=== PATIENT | male | born 1950 | race African-American/Black ===

== ENCOUNTER 2021-04-22 06:36 | Emergency (ER) | payer MEDICARE, OTHER ==
[~2021-04-22] VITALS: Ht 182.9 cm; Wt 69.0 kg
[2021-04-22 07:28] LABS: BASOPHILS % 0.3 % (0.0-2.0); EOSINOPHILS % 0.6 % (0.0-5.0); HEMATOCRIT. 45.1 % (42.0-52.0); HEMOGLOBIN. 15.7 g/dL (14.0-18.0); LYMPHOCYTES % 21.3 % (20.0-50.0); MEAN CORPUSCULAR HEMOGLOBIN 28.5 pg (28.0-32.0); MEAN PLATELET VOLUME 8.6 fl (7.4-10.4); NEUTROPHILS % 69.8 % (40.0-76.0); PLATELET 189 x1000/uL (130-400); RED BLOOD CELL COUNT 5.49 mill/uL (4.7-6.1); RED CELL DISTRIBUTION WIDTH 14.9 % (11.6-14.6)
[2021-04-22 07:37] LABS: CHLORIDE 112 mEq/L (98-107)
[2021-04-22 07:41] LABS: ETHANOL BLOOD < 10 mg/dL
[2021-04-22 07:46] LABS: CREATINE KINASE 75 IU/L (39-308)
[2021-04-22 08:45] LABS: CLARITY URINE CLEAR (CLEAR); COLOR URINE YELLOW (YELLOW); KETONES URINE 1+ (NEGATIVE); LEUKOCYTE ESTERASE URINE NEGATIVE (NEGATIVE); NITRITE URINE NEGATIVE (NEGATIVE); OCCULT BLOOD URINE NEGATIVE (NEGATIVE); PH URINE 5.5 (4.5-8.0); PROTEIN URINE TRACE (NEGATIVE); SPECIFIC GRAVITY URINE 1.022 (1.005-1.030); UROBILINOGEN URINE 0.2 E.U./dL (0.2-1.0)
[2021-04-22 09:08] LABS: *AMPHETAMINES SCREEN URINE NEGATIVE (NEGATIVE); *BARBITURATES SCREEN URINE NEGATIVE (NEGATIVE); *BENZODIAZEPINES SCREEN URINE NEGATIVE (NEGATIVE); *COCAINE SCREEN URINE NEGATIVE (NEGATIVE); METHADONE URINE SCREEN NEGATIVE (NEGATIVE); OPIATES URINE SCREEN PRESUMTIVE POSITIVE (NEGATIVE)
[2021-04-22 09:09] LABS: CANNABINOID URINE SCREEN PRESUMTIVE POSITIVE (NEGATIVE); PHENCYCLIDINE URINE SCREEN NEGATIVE (NEGATIVE)
[2021-04-22 12:15] VITALS: BP 147/87
== END 2021-04-22 12:25 | disposition home or self-care (01) ==
LOC: ER 06:36
DX: G40.909 Epilepsy, unspecified, not intractable, without status epilepticus (principal); I10 Essential (primary) hypertension; H40.9 Unspecified glaucoma; Z87.81 Personal history of (healed) traumatic fracture; Z98.890 Other specified postprocedural states
CPT/HCPCS: 36415; 80053; 80305; 80320; 81003; 82140; 82550; 83605; 84443; 85025; 93005; 99285; G0480

== ENCOUNTER 2021-08-05 10:43 | Inpatient (IN) | payer MEDICARE, MEDICAID ==
[~2021-08-05] VITALS: Ht 167.6 cm; Wt 61.7 kg
[2021-08-05 11:37] LABS: HEMATOCRIT. 45.7 % (42.0-52.0); HEMOGLOBIN. 15.6 g/dL (14.0-18.0); MEAN CORPUSCULAR HEMOGLOBIN 28.4 pg (28.0-32.0); MEAN CORPUSCULAR VOLUME 83.3 fL (80.0-94.0); MEAN PLATELET VOLUME 8.5 fl (7.4-10.4); PLATELET 218 x1000/uL (130-400); RED BLOOD CELL COUNT 5.48 mill/uL (4.7-6.1); RED CELL DISTRIBUTION WIDTH 15.6 % (11.6-14.6)
[2021-08-05 11:43] LABS: CHLORIDE 110 mEq/L (98-107)
[2021-08-05 11:48] LABS: ETHANOL BLOOD < 10 mg/dL
[2021-08-05 12:26] LABS: PLATELET ESTIMATE NORMAL
[2021-08-05 14:58] LABS: CLARITY URINE CLOUDY (CLEAR); COLOR URINE YELLOW (YELLOW); KETONES URINE 1+ (NEGATIVE); LEUKOCYTE ESTERASE URINE 1+ (NEGATIVE); NITRITE URINE NEGATIVE (NEGATIVE); OCCULT BLOOD URINE 2+ (NEGATIVE); PH URINE 5.5 (4.5-8.0); PROTEIN URINE TRACE (NEGATIVE); SPECIFIC GRAVITY URINE 1.019 (1.005-1.030); UROBILINOGEN URINE 0.2 E.U./dL (0.2-1.0)
[2021-08-05 15:18] LABS: *AMPHETAMINES SCREEN URINE NEGATIVE (NEGATIVE); *BARBITURATES SCREEN URINE NEGATIVE (NEGATIVE); *BENZODIAZEPINES SCREEN URINE PRESUMTIVE POSITIVE (NEGATIVE); *COCAINE SCREEN URINE NEGATIVE (NEGATIVE)
[2021-08-05 15:19] LABS: CANNABINOID URINE SCREEN PRESUMTIVE POSITIVE (NEGATIVE); METHADONE URINE SCREEN NEGATIVE (NEGATIVE); OPIATES URINE SCREEN NEGATIVE (NEGATIVE); PHENCYCLIDINE URINE SCREEN NEGATIVE (NEGATIVE)
[2021-08-05] MEDS ORDERED: PIPERACILLIN/TAZ 3.375G PREMIX 50 ML IV ONE (16:15)
[2021-08-05] MEDS ORDERED: VANCOMYCIN 1 G PREMIX 200 ML IV ONE (16:15)
[2021-08-05] MEDS ORDERED: SODIUM CHLORIDE 0.9% 1000ML BAG (SEPSIS BOLUS) IV ONE ×2 (16:15)
[2021-08-05] MEDS ORDERED: LORAZEPAM 2MG/ML CPJ IV ONE (16:30)
[2021-08-05 20:00] VITALS: BP 145/94
[2021-08-05] MEDS ORDERED: ONDANSETRON HCL 4MG/2ML INJ IV PRN (21:48)
[2021-08-05 22:00] VITALS: BP 145/94
[2021-08-05] MEDS: LORAZEPAM 2MG/ML CPJ IV PRN (22:12)
[2021-08-05] MEDS: DEXT 5%/0.45% NACL KCL 20MEQ/L 1,000 ML IV SCH (23:35)
[2021-08-06] VITALS (7 sets, daily range): BP systolic 121–151; BP diastolic 82–99
[2021-08-06 06:27] LABS: BASOPHILS % 0.1 % (0.0-2.0); HEMATOCRIT. 40.2 % (42.0-52.0); HEMOGLOBIN. 13.9 g/dL (14.0-18.0); LYMPHOCYTES % 10.2 % (20.0-50.0); MEAN CORPUSCULAR HEMOGLOBIN 28.6 pg (28.0-32.0); MEAN CORPUSCULAR VOLUME 82.7 fL (80.0-94.0); MEAN PLATELET VOLUME 8.6 fl (7.4-10.4); MONOCYTES % 9.8 % (2.0-8.0); NEUTROPHILS % 79.9 % (40.0-76.0); PLATELET 190 x1000/uL (130-400); RED BLOOD CELL COUNT 4.85 mill/uL (4.7-6.1); RED CELL DISTRIBUTION WIDTH 15.6 % (11.6-14.6)
[2021-08-06 06:45] LABS: CHLORIDE 111 mEq/L (98-107)
[2021-08-06] MEDS: DEXT 5%/0.45% NACL KCL 20MEQ/L 1,000 ML IV SCH ×3 (07:00→22:45)
[2021-08-06] MEDS ORDERED: POTASSIUM CHLORIDE INJ 40 MEQ in DEXT 5% WATER 250 ML IV NR (09:00)
[2021-08-06] MEDS: LORAZEPAM 2MG/ML CPJ IV PRN ×2 (09:41→22:45)
[2021-08-06] MEDS: PANTOPRAZOLE SODIUM 40 MG/VIAL IV SCH (09:41)
[2021-08-06] MEDS ORDERED: CEFTRIAXONE 1 G PREMIX 50 ML IV SCH (13:00)
[2021-08-06] MEDS ORDERED: POTASSIUM CHLORIDE 20MEQ TABLET SR PO SCH (13:00)
[2021-08-06] MEDS: CEFTRIAXONE 1,000 MG in DEXTROSE 5% WATER 50 ML IV SCH (14:55)
[2021-08-07] VITALS: BP 136/90
[2021-08-07 04:00] VITALS: BP 145/96
[2021-08-07 08:00] VITALS: BP 140/89
[2021-08-07] MEDS: LORAZEPAM 2MG/ML CPJ IV PRN ×3 (09:13→22:52)
[2021-08-07] MEDS: DEXT 5%/0.45% NACL KCL 20MEQ/L 1,000 ML IV SCH ×3 (09:13→22:52)
[2021-08-07] MEDS: PANTOPRAZOLE SODIUM 40 MG/VIAL IV SCH (09:13)
[2021-08-07 12:00] VITALS: BP 142/90
[2021-08-07] MEDS: CEFTRIAXONE 1,000 MG in DEXTROSE 5% WATER 50 ML IV SCH (13:19)
[2021-08-07 16:00] VITALS: BP 146/100
[2021-08-07 16:10] LABS: BASOPHILS % 0.2 % (0.0-2.0); HEMOGLOBIN. 12.9 g/dL (14.0-18.0); MEAN CORPUSCULAR HEMOGLOBIN 28.7 pg (28.0-32.0); MEAN CORPUSCULAR VOLUME 82.3 fL (80.0-94.0); MEAN PLATELET VOLUME 8.8 fl (7.4-10.4); MONOCYTES % 11.1 % (2.0-8.0); NEUTROPHILS % 71.7 % (40.0-76.0); PLATELET 179 x1000/uL (130-400)
[2021-08-07 16:13] LABS: CHLORIDE 113 mEq/L (98-107)
[2021-08-07] MEDS ORDERED: LEVO500T89 MT (17:37)
[2021-08-07] MEDS ORDERED: POTASSIUM CHLORIDE 20MEQ TABLET SR PO NR (18:00)
[2021-08-07 20:00] VITALS: BP 155/100
[2021-08-07] MEDS: FAMOTIDINE 20MG/2ML VIAL IV SCH (20:52)
[2021-08-08] VITALS: BP 158/95
[2021-08-08 04:00] VITALS: BP 147/97
[2021-08-08 08:00] VITALS: BP 159/101
[2021-08-08] MEDS: DEXT 5%/0.45% NACL KCL 20MEQ/L 1,000 ML IV SCH (08:31)
[2021-08-08] MEDS: FAMOTIDINE 20MG/2ML VIAL IV SCH (08:32)
[2021-08-08 08:46] VITALS: BP 153/93
== END 2021-08-08 11:05 | disposition home health service (06) | DRG 52 ==
LOC: ER 10:43 → EDBEDREQTM 16:21 → EDBEDREQ 16:21 → ENRESERV 18:45 → 8WST 19:26
PROVIDERS: ADMIT Internal Medicine; ATTEND Internal Medicine
DX: G93.41 Metabolic encephalopathy (principal); E87.2 Acidosis; E87.8 Other disorders of electrolyte and fluid balance, not elsewhere classified; I10 Essential (primary) hypertension; J45.909 Unspecified asthma, uncomplicated; N39.0 Urinary tract infection, site not specified
CPT/HCPCS: 36415; 71045; 80048; 80053; 80305; 80320; 81003; 82140; 82962; 83605; 84145; 84484; 85025; 93005; 97162; 99285; C1893; C9113; J0696; J2060; J2543; J3370; J3480; J3490; J7030; J7060; A4315; G0480

== ENCOUNTER 2021-10-15 13:26 | Inpatient (IN) | payer MEDICARE, MEDICAID ==
[~2021-10-15] VITALS: Ht 177.8 cm; Wt 59.9 kg
[~2021-10-15 13:26] MED LIST: LEVO500T89 MT
[2021-10-15] MEDS ORDERED: SODIUM CHLORIDE 0.9% 1000ML BAG (SEPSIS BOLUS) IV ONE (15:00)
[2021-10-15 15:29] LABS: HEMATOCRIT. 46.9 % (42.0-52.0); HEMOGLOBIN. 15.2 g/dL (14.0-18.0); MEAN CORPUSCULAR HEMOGLOBIN 27.2 pg (28.0-32.0); MEAN CORPUSCULAR VOLUME 84.1 fL (80.0-94.0); MEAN PLATELET VOLUME 8.4 fl (7.4-10.4); PLATELET 223 x1000/uL (130-400); RED BLOOD CELL COUNT 5.58 mill/uL (4.7-6.1); RED CELL DISTRIBUTION WIDTH 14.9 % (11.6-14.6)
[2021-10-15 15:34] LABS: CHLORIDE 108 mEq/L (98-107)
[2021-10-15 16:24] LABS: CLARITY URINE TURBID (CLEAR); COLOR URINE YELLOW (YELLOW); KETONES URINE 1+ (NEGATIVE); LEUKOCYTE ESTERASE URINE NEGATIVE (NEGATIVE); NITRITE URINE NEGATIVE (NEGATIVE); OCCULT BLOOD URINE 1+ (NEGATIVE); PH URINE 5.5 (4.5-8.0); PROTEIN URINE 1+ (NEGATIVE); SPECIFIC GRAVITY URINE 1.018 (1.005-1.030); UROBILINOGEN URINE 0.2 E.U./dL (0.2-1.0)
[2021-10-15 16:28] LABS: BG BASE EXCESS -2.4 mmol/L (-2.0-2.0); BG CARBOXYHEMOGLOBIN 1.1 % (0.5-1.5); BG DEOXYHEMOGLOBIN 2.9 % (0.0-5.0); BG FRACTION INSPIRED OXYGEN 21; BG HCO3 ACT 19.6 mmol/L (22.0-26.0); BG METHEMOGLOBIN 0.4 % (0.0-1.5); BG OXYGEN SATURATION 97.1 % (92.0-98.5); BG OXYHEMOGLOBIN 95.6 % (94.0-97.0); BG PCO2 27.1 mmHg (35.0-45.0); BG PH 7.477 (7.350-7.450); BG PO2 80.1 mmHg (75.0-100.0); BG SAMPLE SITE RIGHT BRACHIAL; BG TOTAL HEMOGLOBIN 14.2 g/dL (12.0-18.0); BG VENT MODE ROOM AIR
[2021-10-15] MEDS ORDERED: ASPIRIN 325MG EC TABLET PO ONE (17:00)
[2021-10-15] MEDS ORDERED: CEFEPIME 2,000 MG in DEXT 5% WATER 100 ML IV SCH (17:00)
[2021-10-15] MEDS ORDERED: VANCOMYCIN 750 MG PREMIX 150 ML IV SCH (17:15)
[2021-10-15] MEDS ORDERED: LEVETIRACETAM 500MG PREMIX 100 ML IV ONE ×3 (17:30)
[2021-10-15 17:31] LABS: PLATELET ESTIMATE NORMAL
[2021-10-15] MEDS ORDERED: ONDANSETRON HCL 4MG/2ML INJ IV PRN (17:45)
[2021-10-15] MEDS ORDERED: CLONIDINE 0.1MG TABLET PO PRN (17:45)
[2021-10-15] MEDS ORDERED: IPRATROPIUM/ALBUTEROL 0.5-3(2.5)MG/3ML NEB HHN PRN (17:45)
[2021-10-15] MEDS ORDERED: LORAZEPAM 2MG/ML CPJ IV PRN (17:45)
[2021-10-15] MEDS ORDERED: IOHEXOL-300 100 ML BOTTLE ONE (18:16)
[2021-10-15] MEDS: DIPHENHYDRAMINE 50MG/ML VIAL IV PRN (18:50)
[2021-10-15 20:45] VITALS: BP 123/89
[2021-10-15] MEDS ORDERED: DEXTROSE 50% WATER 50ML SYRINGE IV PRN (23:45)
[2021-10-16] VITALS: BP 102/67
[2021-10-16] MEDS ORDERED: GABA-532 PO (00:06)
[2021-10-16] MEDS ORDERED: DORZ10DR9 EACHEYE (00:06)
[2021-10-16] MEDS ORDERED: ASPI-1497 PO (00:06)
[2021-10-16] MEDS ORDERED: LATA2.5D14 EACHEYE (00:06)
[2021-10-16] MEDS ORDERED: HYDR25TA PO (00:06)
[2021-10-16] MEDS ORDERED: OMEP20CA14 PO (00:06)
[2021-10-16] MEDS ORDERED: LISI20TA31 PO (00:06)
[2021-10-16] MEDS ORDERED: QUET50TA23 PO (00:06)
[2021-10-16 00:15] LABS: CREATINE KINASE MB FRACTION 8.2 ng/mL (0.5-3.6)
[2021-10-16] MEDS: ACETAMINOPHEN 325MG TABLET PO PRN ×2 (01:04→21:06)
[2021-10-16] MEDS ORDERED: VANCOMYCIN 750 MG PREMIX 150 ML IV SCH (02:00)
[2021-10-16 04:00] VITALS: BP 114/95
[2021-10-16 06:29] LABS: BASOPHILS % 0.1 % (0.0-2.0); HEMATOCRIT. 42.7 % (42.0-52.0); HEMOGLOBIN. 14.5 g/dL (14.0-18.0); LYMPHOCYTES % 13.3 % (20.0-50.0); MEAN CORPUSCULAR HEMOGLOBIN 28.2 pg (28.0-32.0); MEAN CORPUSCULAR VOLUME 82.8 fL (80.0-94.0); MEAN PLATELET VOLUME 8.5 fl (7.4-10.4); MONOCYTES % 8.3 % (2.0-8.0); NEUTROPHILS % 78.3 % (40.0-76.0); PLATELET 207 x1000/uL (130-400); RED BLOOD CELL COUNT 5.16 mill/uL (4.7-6.1); RED CELL DISTRIBUTION WIDTH 14.8 % (11.6-14.6)
[2021-10-16] MEDS: INSULIN LISPRO 100 UNITS/ML SUBCUT SCH ×4 (06:57→21:00)
[2021-10-16 07:06] LABS: CHLORIDE 113 mEq/L (98-107)
[2021-10-16 07:18] LABS: CREATINE KINASE MB FRACTION 7.5 ng/mL (0.5-3.6)
[2021-10-16] MEDS: BLOOD SUGAR DIAGNOSTIC STRIP TEST SCH ×4 (07:20→21:00)
[2021-10-16 07:32] LABS: CREATINE KINASE 2513 IU/L (39-308)
[2021-10-16 08:00] VITALS: BP 118/86
[2021-10-16] MEDS: POTASSIUM CHLORIDE 20MEQ TABLET SR PO SCH (09:11)
[2021-10-16] MEDS ORDERED: KCL 20MEQ/100ML PREMIX 100 ML IV SCH (11:00)
[2021-10-16 12:11] VITALS: BP 138/88
[2021-10-16 13:05] LABS: T4 FREE 1.13 ng/dL (0.76-1.46)
[2021-10-16 13:06] LABS: CREATINE KINASE MB FRACTION 6.6 ng/mL (0.5-3.6)
[2021-10-16] MEDS: SODIUM CHLORIDE 0.9% 1,000 ML IV SCH (13:30)
[2021-10-16] MEDS: OMEPRAZOLE 20MG CAPSULE EXTENDED RELEASE PO SCH (13:31)
[2021-10-16] MEDS: GABAPENTIN 100MG CAPSULE PO SCH ×2 (13:31→21:07)
[2021-10-16] MEDS: ASPIRIN 81MG EC TABLET PO SCH (13:31)
[2021-10-16] MEDS: LEVETIRACETAM 500MG PREMIX 100 ML IV SCH ×2 (15:15→23:53)
[2021-10-16 16:25] VITALS: BP 126/88
[2021-10-16] MEDS: DORZOLAM/TIMOLOL 2.23/0.68% OPHTH DROPS 10ML EACHEYE SCH (17:02)
[2021-10-16 17:06] LABS: *AMPHETAMINES SCREEN URINE NEGATIVE (NEGATIVE); *BARBITURATES SCREEN URINE NEGATIVE (NEGATIVE); *BENZODIAZEPINES SCREEN URINE NEGATIVE (NEGATIVE); *COCAINE SCREEN URINE NEGATIVE (NEGATIVE); METHADONE URINE SCREEN NEGATIVE (NEGATIVE); OPIATES URINE SCREEN NEGATIVE (NEGATIVE)
[2021-10-16 17:07] LABS: CANNABINOID URINE SCREEN PRESUMTIVE POSITIVE (NEGATIVE); PHENCYCLIDINE URINE SCREEN NEGATIVE (NEGATIVE)
[2021-10-16 20:00] VITALS: BP 133/83
[2021-10-16] MEDS ORDERED: IOHEXOL-350 100 ML BOTTLE ONE (20:43)
[2021-10-16] MEDS: QUETIAPINE FUMARATE 50MG TABLET PO SCH (21:07)
[2021-10-16] MEDS: LATANOPROST 0.005% OPHTH DROPS 2.5ML EACHEYE SCH (21:07)
[2021-10-16] MEDS ORDERED: KETO5DRO37 RIGHTEYE (21:31)
[2021-10-16] MEDS: KETOROLAC TROMETHAMINE 0.5% OPHTH 3ML RIGHTEYE SCH (23:56)
[2021-10-17] VITALS: BP 131/91
[2021-10-17 04:00] VITALS: BP 140/90
[2021-10-17 06:11] LABS: CHLORIDE 115 mEq/L (98-107)
[2021-10-17 06:12] LABS: BASOPHILS % 0.5 % (0.0-2.0); EOSINOPHILS % 0.4 % (0.0-5.0); HEMATOCRIT. 37.8 % (42.0-52.0); LYMPHOCYTES % 18.8 % (20.0-50.0); MEAN CORPUSCULAR HEMOGLOBIN 28.6 pg (28.0-32.0); MEAN CORPUSCULAR VOLUME 82.9 fL (80.0-94.0); MEAN PLATELET VOLUME 8.6 fl (7.4-10.4); NEUTROPHILS % 69.3 % (40.0-76.0); PLATELET 183 x1000/uL (130-400); RED BLOOD CELL COUNT 4.56 mill/uL (4.7-6.1); RED CELL DISTRIBUTION WIDTH 14.9 % (11.6-14.6)
[2021-10-17] MEDS: GABAPENTIN 100MG CAPSULE PO SCH ×3 (06:14→21:28)
[2021-10-17 06:19] LABS: LDL CHOLESTEROL 54 mg/dL (5-100)
[2021-10-17 06:21] LABS: HDL CHOLESTEROL 75 mg/dL (40-59)
[2021-10-17] MEDS: INSULIN LISPRO 100 UNITS/ML SUBCUT SCH ×4 (07:50→21:00)
[2021-10-17] MEDS: BLOOD SUGAR DIAGNOSTIC STRIP TEST SCH ×4 (07:56→21:00)
[2021-10-17 08:00] VITALS: BP 147/91
[2021-10-17] MEDS: OMEPRAZOLE 20MG CAPSULE EXTENDED RELEASE PO SCH (09:08)
[2021-10-17] MEDS: LISINOPRIL 20MG TABLET PO SCH (09:08)
[2021-10-17] MEDS: ASPIRIN 81MG EC TABLET PO SCH (09:08)
[2021-10-17] MEDS: DORZOLAM/TIMOLOL 2.23/0.68% OPHTH DROPS 10ML EACHEYE SCH ×2 (09:09→16:49)
[2021-10-17] MEDS: KETOROLAC TROMETHAMINE 0.5% OPHTH 3ML RIGHTEYE SCH ×3 (09:09→16:50)
[2021-10-17] MEDS: POTASSIUM CHLORIDE 20MEQ TABLET SR PO SCH (09:09)
[2021-10-17] MEDS: SODIUM CHLORIDE 0.9% 1,000 ML IV SCH (09:10)
[2021-10-17] MEDS: LEVETIRACETAM 500MG PREMIX 100 ML IV SCH (09:10)
[2021-10-17] MEDS: POTASSIUM CHLORIDE 20MEQ/PACKET PO SCH ×2 (10:56→16:50)
[2021-10-17 12:00] VITALS: BP 129/88
[2021-10-17 16:00] VITALS: BP 134/90
[2021-10-17] MEDS ORDERED: POTASSIUM CHLORIDE 20MEQ/PACKET PO SCH (17:00)
[2021-10-17 20:00] VITALS: BP 124/91
[2021-10-17] MEDS: QUETIAPINE FUMARATE 50MG TABLET PO SCH (21:27)
[2021-10-17] MEDS: LEVETIRACETAM 500MG TABLET PO SCH (21:28)
[2021-10-17] MEDS: DIPHENHYDRAMINE 50MG/ML VIAL IV PRN (21:28)
[2021-10-17] MEDS: LATANOPROST 0.005% OPHTH DROPS 2.5ML EACHEYE SCH (21:29)
[2021-10-18] VITALS: BP 136/90
[2021-10-18 04:00] VITALS: BP 132/91
[2021-10-18] MEDS: SODIUM CHLORIDE 0.9% 1,000 ML IV SCH (04:45)
[2021-10-18] MEDS: GABAPENTIN 100MG CAPSULE PO SCH ×2 (06:11→13:01)
[2021-10-18] MEDS: BLOOD SUGAR DIAGNOSTIC STRIP TEST SCH ×2 (07:04→12:33)
[2021-10-18 07:39] LABS: BASOPHILS % 0.3 % (0.0-2.0); EOSINOPHILS % 1.1 % (0.0-5.0); HEMATOCRIT. 39.9 % (42.0-52.0); HEMOGLOBIN. 13.5 g/dL (14.0-18.0); LYMPHOCYTES % 21.2 % (20.0-50.0); MEAN CORPUSCULAR HEMOGLOBIN 28.1 pg (28.0-32.0); MEAN CORPUSCULAR VOLUME 82.9 fL (80.0-94.0); MEAN PLATELET VOLUME 8.7 fl (7.4-10.4); MONOCYTES % 10.4 % (2.0-8.0); PLATELET 193 x1000/uL (130-400); RED BLOOD CELL COUNT 4.81 mill/uL (4.7-6.1)
[2021-10-18] MEDS: INSULIN LISPRO 100 UNITS/ML SUBCUT SCH ×2 (07:39→12:33)
[2021-10-18 07:50] LABS: CHLORIDE 113 mEq/L (98-107)
[2021-10-18 08:00] VITALS: BP 147/92
[2021-10-18 08:09] LABS: CREATINE KINASE MB FRACTION 2.6 ng/mL (0.5-3.6)
[2021-10-18 08:21] LABS: CREATINE KINASE 2788 IU/L (39-308)
[2021-10-18] MEDS: DORZOLAM/TIMOLOL 2.23/0.68% OPHTH DROPS 10ML EACHEYE SCH ×2 (08:37→16:01)
[2021-10-18] MEDS: KETOROLAC TROMETHAMINE 0.5% OPHTH 3ML RIGHTEYE SCH ×3 (08:38→16:01)
[2021-10-18] MEDS: ASPIRIN 81MG EC TABLET PO SCH (08:38)
[2021-10-18] MEDS: POTASSIUM CHLORIDE 20MEQ/PACKET PO SCH (08:38)
[2021-10-18] MEDS: LEVETIRACETAM 500MG TABLET PO SCH (08:38)
[2021-10-18] MEDS ORDERED: FAMOTIDINE 20MG TABLET PO SCH (09:00)
[2021-10-18] MEDS: LISINOPRIL 20MG TABLET PO SCH (09:09)
[2021-10-18 12:00] VITALS: BP 150/100
[2021-10-18] MEDS ORDERED: KEPP500 PO (13:12)
[2021-10-18] MEDS ORDERED: TAMSULOSIN HCL 0.4MG SR CAPSULE PO SCH (13:15)
[2021-10-18 15:19] VITALS: BP 142/94
[2021-10-18 16:00] VITALS: BP 142/94
== END 2021-10-18 17:00 | disposition home health service (06) | DRG 53 ==
LOC: ER 13:32 → ENRESERV 19:43 → 6WST 22:20
PROVIDERS: ADMIT Internal Medicine; ATTEND Internal Medicine
PROC: 4A10X4Z Monitoring of Central Nervous Electrical Activity, External Approach (ICD-10-PCS; principal; 2021-10-16)
DX: G40.909 Epilepsy, unspecified, not intractable, without status epilepticus (principal); E87.2 Acidosis; M62.82 Rhabdomyolysis; R65.10 Systemic inflammatory response syndrome (SIRS) of non-infectious origin without acute organ dysfunction; E78.5 Hyperlipidemia, unspecified; E87.6 Hypokalemia; N39.0 Urinary tract infection, site not specified; F12.90 Cannabis use, unspecified, uncomplicated; F17.210 Nicotine dependence, cigarettes, uncomplicated; I10 Essential (primary) hypertension; J45.909 Unspecified asthma, uncomplicated; R79.89 Other specified abnormal findings of blood chemistry; B96.89 Other specified bacterial agents as the cause of diseases classified elsewhere; F32.A Depression, unspecified; N28.1 Cyst of kidney, acquired; J98.11 Atelectasis; N40.0 Benign prostatic hyperplasia without lower urinary tract symptoms; Z86.73 Personal history of transient ischemic attack (TIA), and cerebral infarction without residual deficits; R77.8 Other specified abnormalities of plasma proteins; F99 Mental disorder, not otherwise specified
CPT/HCPCS: 36415; 36600; 70551; 71045; 71275; 74177; 80048; 80053; 80061; 80076; 80202; 80305; 81003; 82375; 82550; 82553; 82805; 82962; 83036; 83605; 83735; 83880; 84145; 84439; 84443; 84481; 84484; 85025; 85379; 93005; 93306; 93880; 93970; 95816; 97161; 99285; J0692; J1200; J1953; J3370; J3480; J7030; J7060; Q9967